=== PATIENT | male | born 1930 | race Caucasian/White ===

== ENCOUNTER → 2016-12-23 | Outpatient (CLI) | payer MEDICARE ==
[~2016-12-23] MED LIST: ACET-2723 PO; AMLO10TA62 PO; ARIP2TAB10 PO; ASPI-611 PO; CALC750T4 PO; DOCU100T PO; ESCI20TA PO; FLUT9.9S EA NOSTRIL; LEVO75TA10 PO; LORA0.5T86 PO; LORA10TA7 PO; MELA1TAB17 PO; MULT-29 PO; NAPR220T24 PO; PANT40TA PO; POLY17PO6 PO; POTA10CA37 PO; RANI150T12 PO; RISP0.2515 PO; SENN8.6T94 PO; SODI45SP7 EA NOSTRIL; TORS20TA4 PO
[2016-12-23 12:13] LABS: BLOOD, URINE NEGATIVE (NEGATIVE); COLOR,URINE YELLOW (YELLOW); LEUKOCYTE ESTERASE ,URINE NEGATIVE (NEGATIVE); NITRITE,URINE NEGATIVE (NEGATIVE)
== END ==
LOC: LABN.PM 11:59
PROVIDERS: ATTEND Family Medicine
DX: D64.9 Anemia, unspecified (principal)
CPT/HCPCS: 81003

== ENCOUNTER → 2017-01-03 | Outpatient (CLI) | payer MEDICARE | LOC: LABNH.PM 01:57 | PROVIDERS: ATTEND Family Medicine | DX: Z53.20 Procedure and treatment not carried out because of patient's decision for unspecified reasons (principal) ==

== ENCOUNTER → 2017-01-17 | Outpatient (CLI) | payer MEDICARE ==
[2017-01-17 07:57] LABS: THYROID STIM HORMONE-TSH 1.85 MIU/L (0.47-4.68)
== END ==
LOC: LABNH.PM 01:45
PROVIDERS: ATTEND Family Medicine
DX: E03.9 Hypothyroidism, unspecified (principal); I50.9 Heart failure, unspecified
CPT/HCPCS: 36415; 83880; 84443; P9604

== ENCOUNTER → 2017-01-24 | Outpatient (CLI) | payer MEDICARE | LOC: LABNH.PM 01:49 | PROVIDERS: ATTEND Family Medicine | DX: Z53.8 Procedure and treatment not carried out for other reasons (principal) | CPT/HCPCS: 36415 ==

== ENCOUNTER → 2017-01-31 | Outpatient (CLI) | payer MEDICARE | LOC: LABNH.PM 00:38 | PROVIDERS: ATTEND Family Medicine | DX: Z53.8 Procedure and treatment not carried out for other reasons (principal) ==

== ENCOUNTER → 2017-02-15 | Outpatient (CLI) | payer MEDICARE ==
[2017-02-15 08:21] LABS: BASOPHILS # (AUTO) 0.1 T/MM3 (0-0.2); BASOPHILS % (AUTO) 0.9 % (0-2); EOSINOPHILS # (AUTO) 0.2 T/MM3 (0-0.5); HCT - HEMATOCRIT 34.3 % (41-53); HGB - HEMOGLOBIN 10.8 GM/DL (13.5-17.5); LYMPHOCYTES # (AUTO) 1.3 T/MM3 (1-4.8); LYMPHOCYTES % (AUTO) 24.5 % (23-45); MEAN CORPUSCULAR HGB 29.5 UUG (26-34); MEAN CORPUSCULAR HGB CONC(MCHC 31.5 GM/DL (31-37); MEAN CORPUSCULAR VOLUME 93.7 UM3 (80-100); MEAN PLATELET VOLUME 10.7 UM3 (9.4-12.4); MONOCYTES # (AUTO) 0.5 T/MM3 (0-0.8); MONOCYTES % (AUTO) 9.9 % (0-9.0); NEUTROPHILS #(AUTO)-ABSOLUTE 3.3 T/MM3 (1.8-7.7); NEUTROPHILS % (AUTO) 60.7 % (33-66); RED BLOOD COUNT 3.66 M/MM3 (4.50-5.90); WBC - WHITE BLOOD COUNT 5.5 T/MM3 (4.5-11.0)
[2017-02-15 08:37] LABS: ALBUMIN/GLOBULIN RATIO 1.4 RATIO (1.1-2.2); ALKALINE PHOSPHATASE 112 U/L (38-126); ALT (SGPT) 32 U/L (21-72); ANION GAP 14 MEQ/L (5-15); AST (SGOT) 21 U/L (17-59); BUN/CREATININE RATIO 11 RATIO (6-26); CALCIUM 9.4 MG/DL (8.4-10.2); CHLORIDE 105 MEQ/L (98-107); CO2 - CARBON DIOXIDE 28 MEQ/L (22-30); CREATININE 1.3 MG/DL (0.8-1.5); GLOMERULAR FILTRATION RATE 52; GLUCOSE 92 MG/DL (75-110); POTASSIUM 3.8 MEQ/L (3.6-5); PROBNP 5090 PG/ML (0-175); SODIUM 147 MEQ/L (134-144); TOTAL PROTEIN 6.8 G/DL (6.3-8.2)
== END ==
LOC: LABNH.PM 00:25
PROVIDERS: ATTEND Family Medicine
DX: E87.6 Hypokalemia (principal); I10 Essential (primary) hypertension; I80.9 Phlebitis and thrombophlebitis of unspecified site; R60.9 Edema, unspecified
CPT/HCPCS: 36415; 80053; 83880; 85025; P9604

== ENCOUNTER → 2017-02-21 | Outpatient (CLI) | payer MEDICARE ==
[2017-02-21 07:49] LABS: ANION GAP 15 MEQ/L (5-15); BUN/CREATININE RATIO 14 RATIO (6-26); CALCIUM 9.8 MG/DL (8.4-10.2); CHLORIDE 104 MEQ/L (98-107); CO2 - CARBON DIOXIDE 29 MEQ/L (22-30); CREATININE 1.2 MG/DL (0.8-1.5); GLOMERULAR FILTRATION RATE 57; GLUCOSE 91 MG/DL (75-110); POTASSIUM 3.8 MEQ/L (3.6-5); SODIUM 148 MEQ/L (134-144)
[2017-02-21 07:58] LABS: PROBNP 2830 PG/ML (0-175)
== END ==
LOC: LABNH.PM 07:07
PROVIDERS: ATTEND Family Medicine
DX: I50.9 Heart failure, unspecified (principal)
CPT/HCPCS: 36415; 80048; 83880; 84484